=== PATIENT | female | born 1965 | race African-American/Black ===

== ENCOUNTER 2025-01-29 22:08 | Emergency (ER) | payer MEDICAID ==
[~2025-01-29] VITALS: Ht 157.5 cm; Wt 60.0 kg
[2025-01-29 22:11] VITALS: O2SAT 100
[2025-01-29] MEDS: SODIUM CHLORIDE 0.9% 1,000 ML IV ONE (22:51)
[2025-01-29 22:54] LABS: BASOPHILS % 0.4 % (0.0-2.0); EOSINOPHILS % 3.9 % (0.0-5.0); HEMATOCRIT. 35.7 % (36.0-48.0); HEMOGLOBIN. 12.0 g/dL (12.0-16.0); LYMPHOCYTES % 26.1 % (20.0-50.0); MEAN PLATELET VOLUME 6.8 fl (7.4-10.4); MONOCYTES % 6.9 % (2.0-8.0); NEUTROPHILS % 62.7 % (40.0-76.0); PLATELET 326 x1000/uL (130-400); RED BLOOD CELL COUNT 3.56 mill/uL (4.2-5.4); RED CELL DISTRIBUTION WIDTH 14.3 % (11.6-14.6)
[2025-01-29 23:08] LABS: CREATININE 1.1 mg/dL (0.6-1.0)
[2025-01-29 23:09] LABS: UREA NITROGEN BLOOD 20 mg/dL (9-23)
[2025-01-29 23:10] LABS: ASPARTATE AMINOTRANSFERASE 17 IU/L (<34); BILIRUBIN DIRECT < 0.1 mg/dL (<=3.0); TROPONIN I HIGH SENSITIVITY 5 ng/L (3.0-34)
[2025-01-29 23:11] LABS: BILIRUBIN TOTAL 0.3 mg/dL (0.1-1.0); PROTEIN TOTAL 6.5 g/dL (6.0-8.3)
[2025-01-30 00:29] VITALS: BP 108/70; PULSE 72; RESP 16; TEMP 36.6; O2SAT 97
== END 2025-01-30 00:58 | disposition home or self-care (01) ==
LOC: ER 22:08
DX: R55 Syncope and collapse (principal); F19.10 Other psychoactive substance abuse, uncomplicated; I10 Essential (primary) hypertension; F17.200 Nicotine dependence, unspecified, uncomplicated; Z88.0 Allergy status to penicillin; Z88.1 Allergy status to other antibiotic agents
CPT/HCPCS: 80076; 80048; 80320; 83690; 85025; 84484; 36415; 71045; 93005; 96360; 96361; 99285; J7030; G0480